=== PATIENT | male | born 1985 | race American Indian/Alaskan Native ===

== ENCOUNTER 2017-12-25 12:55 | Emergency (ER) | payer SELFPAY ==
[2017-12-25 13:15] VITALS: BP 130/84
--- NOTE | 2017-12-25 13:57 | XRay Report ---
LEFT HAND, 3 views: History: Pain. The bony architecture is intact. Bony alignment is normal. No soft tissue abnormalities are seen. The joint spaces appear preserved. IMPRESSION: Normal left hand.
== END 2017-12-25 15:25 | disposition left against medical advice (07) ==
LOC: EDBD → ED 12:55
DX: M79.643 Pain in unspecified hand (principal); Z53.21 Procedure and treatment not carried out due to patient leaving prior to being seen by health care provider

== ENCOUNTER 2021-02-23 10:52 | Emergency (ER) | payer SELFPAY ==
[2021-02-23 12:58] VITALS: BP 131/84
--- NOTE | 2021-02-23 13:06 | Emergency Department Report ---
Chief Complaint: Skin Rash Stated Complaint: POTENTIAL MENEGITIS Time Seen by Provider: 02/23/21 13:04 - HPI History of Present Illness: 35 yo male comes in with rash- face/neck/arms/trunk for several months he went on google and found meningitis as cause so he comes to ER pmh none psh none rx none - ROS Review of Systems: rash only no fever/chills no cp / no sob no abd pain no n/v/d no headache no head trauma - Exam Vital Signs: Vital Signs 02/23/21 12:57 Temperature 98.7 F Pulse Rate 99 H Respiratory 16 Rate Blood Pressure 131/84 [Right] O2 Sat by Pulse 99 Oximetry Physical Exam: cystic appearing rash on trunk/face no secondary infection noted neuro intact s1s2 lungs cta abd snt ambulatory and non ill appearing MSE screening note: Focused history and physical exam performed. Due to findings the following was ordered: no life threat Pt educated on dermatology follow up for definitive care and management MSE home with d/c instructions. ED Disposition for MSE Clinical Impression: Rash Disposition: 01 HOME / SELF CARE / HOMELESS Is pt being admited?: No Does the pt Need Aspirin: No Condition: Stable Instructions: Rash, Adult Additional Instructions: follow up with derm as we discussed referral below Referrals: MATT MOLINA MD [Staff Physician] - 3-5 Days MARIANNE HUANG MD [Referring] - 3-5 Days Forms: Work/School Release Form(ED) Time of Disposition: 13:04
== END 2021-02-23 13:23 | disposition home or self-care (01) ==
LOC: ED 10:52
DX: R21 Rash and other nonspecific skin eruption (principal)
CPT/HCPCS: 99281